=== PATIENT | male | born 1990 | race Hispanic/Latino ===

== ENCOUNTER 2016-10-23 16:50 | Emergency (ER) | payer OTHER ==
[~2016-10-23] VITALS: Ht 182.9 cm; Wt 90.7 kg
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
[2016-10-23] MEDS ORDERED: TETANUS DIPHTHERIA TOXOIDS IM ONE (17:08)
[2016-10-23] MEDS ORDERED: BOOSTRIX VACCINE SYRINGE IM ONE (17:30)
[2016-10-23 18:15] VITALS: BP 135/84
== END 2016-10-23 17:55 | disposition home or self-care (01) ==
LOC: ER 16:50
DX: S40.012A Contusion of left shoulder, initial encounter (principal); V49.88XA Car occupant (driver) (passenger) injured in other specified transport accidents, initial encounter; Y93.89 Activity, other specified; Y92.89 Other specified places as the place of occurrence of the external cause; Y99.8 Other external cause status
CPT/HCPCS: 90471; 90714; 99283